=== PATIENT | female | born 1995 | race Caucasian/White ===

== ENCOUNTER 2020-02-01 19:50 | Inpatient (IN) | payer BC ==
[~2020-02-01] VITALS: Ht 175.3 cm; Wt 88.5 kg
[2020-02-01 20:33] LABS: HEMATOCRIT 34.2 % (36.0-48.0); HEMOGLOBIN 11.4 g/dL (12-16); MCH 28.9 pg (26.0-34.0); MCHC 33.3 g/dL (31.0-37.0); MCV 86.6 fL (80.0-100.0); MEAN PLATELET VOLUME 11.6 fL (7.4-10.4); RBC 3.95 10x6/uL (4.00-5.40); RDW 12.8 % (11.5-14.5); WBC 9.8 10x3/uL (4.8-10.8)
[2020-02-01 20:41] LABS: BILIRUBIN NEGATIVE (NEGATIVE); KETONE NEGATIVE (NEGATIVE); NITRITE NEGATIVE (NEGATIVE); UROBILINOGEN NORMAL (NORMAL)
[2020-02-01] MEDS ORDERED: FEXOFENADINE H180 MG PO (20:51)
[2020-02-01] MEDS ORDERED: OMEPRAZOLE40 MG PO (20:51)
[2020-02-01 20:52] VITALS: BP 121/83; Ht 175.3 cm; Wt 88.5 kg
[2020-02-01] MEDS ORDERED: PRENAVITE1 TAB PO (20:52)
[2020-02-01] MEDS ORDERED: SYMBICORT 80-10.2 GM INH (20:52)
[2020-02-02 08:30] LABS: UDS - AMPHET NEGATIVE QUAL (NEGATIVE); UDS - BARB NEGATIVE QUAL (NEGATIVE); UDS - BENZO NEGATIVE QUAL (NEGATIVE); UDS - COCAINE NEGATIVE QUAL (NEGATIVE); UDS - OPIATE NEGATIVE QUAL (NEGATIVE); UDS - PCP NEGATIVE QUAL (NEGATIVE); UDS - THC NEGATIVE QUAL (NEGATIVE)
[2020-02-02 21:40] VITALS: BP 116/60
--- NOTE | 2020-02-02 21:40 | NUR ---
PT REC'D IN BED. DENIES PAIN. SALINE LOCK TO THE RT HAND. FUNDUS FIRM AND MIDLINE WITH SMALL LOCHIA NOTED. NO DISTRESS NOTED. Maris FISH RN
--- NOTE | 2020-02-02 22:00 | NUR ---
REPORT TO Lisa EVANS RN. Maris FISH RN
--- NOTE | 2020-02-02 22:10 | NUR ---
RECEIVED PT FROM L[facility]D POST SARITA, PT TO ROOM 1257, REPORT FROM REBECCA FISH RN, PT ORIENTED TO ROOM, BED IN LOW POSITION, SIDE RAILS X 2, CALL LIGHT IN REACH
--- NOTE | 2020-02-02 22:15 | NUR ---
PT TO ROOM 1257 FOR HOSPITAL STAY. Maris FISH RN
--- NOTE | 2020-02-02 22:35 | NUR ---
PT WATCHING TV, VISITING WITH FOB, PT DENIES NEEDS OR PAIN AT THIS TIME
--- NOTE | 2020-02-02 23:33 | NUR ---
PT DOOR TRIMMER LIGHT, PT UP TO BR WITH ASSISTANCE, GAIT STEADY, ASSISTED PT WITH [place] [employer], PT REPORTS THAT SHE CAN FINISH HERSELF, PT INST TO USE CALL LIGHT FOR ANY ADDITIONAL ASSISTANCE, PT VERBALIZES UNDERSTANDING, DENIES FURTHER NEEDS, FOB HOLDING , REQUESTED AND SERVED COLA
--- NOTE | 2020-02-03 02:17 | NUR ---
PT RESTING WITH EYES CLOSED, RESP QUIET, NO DISTRESS NOTED, LEFT UNDISTURBED AT THIS TIME, IN OPEN CRIB CART AND FOB ASLEEP AT BEDSIDE
--- NOTE | 2020-02-03 04:32 | NUR ---
PT AWAKE, LAB IN ROOM FOR AM BLOOD DRAW, PT DENIES PAIN, REQUESTED AND SERVED FRESH H20, DENIES FURTHER NEEDS, IN OPEN CRIB CART AND FOB ASLEEP AT BEDSIDE
[2020-02-03 04:49] LABS: HEMOGLOBIN 11.2 g/dL (12-16); MCH 28.6 pg (26.0-34.0); MCHC 32.9 g/dL (31.0-37.0); RBC 3.91 10x6/uL (4.00-5.40); RDW 13.1 % (11.5-14.5)
[2020-02-03 04:51] LABS: WBC 17.4 10x3/uL (4.8-10.8)
[2020-02-03 06:11] LABS: RAPID PLASMA REAGIN Non Reactive (Non Reactive)
--- NOTE | 2020-02-03 06:13 | NUR ---
PT RESTING WITH EYES CLOSED, RESP QUIET, NO DISTRESS NOTED, LEFT UNDISTURBED AT THIS TIME, IN OPEN CRIB CART AND FOB ASLEEP AT BEDSIDE
[2020-02-03 08:10] VITALS: BP 105/61
--- NOTE | 2020-02-03 08:10 | NUR ---
RECEIVED PT SITTING UP IN BED. AWAKE. AAAO X 3. VSS. HRRR WITHOUT AUDIBLE MURMUR. BBS CLEAR. BS X 4. PT STATES PASSING GAS. ABDOMEN SOFT/NON-DISTENDED. FUNDUS FIRM AT U/1. RUBRA LOCHIA SMALL AMT. PT DENIES HEAVY BLEEDING OR PASSING CLOTS. PERINEUM WITHOUT EDEMA NOTED. NEG HOMANS' SIGN. PPP. NO EDEMA NOTED TO BLE. PT DENIES PAIN OR NEEDS. SR UPX 2. CALL LIGHT IN REACH.
--- NOTE | 2020-02-03 08:15 | NUR ---
DR VANESSA VISITS WITH PT.
--- NOTE | 2020-02-03 09:02 | NUR ---
PT C/O SOAKING PERIPAD FROM 4440-3760. PERIPAD VIEWED. 3/4 OF PAD WITH SEROSANGUINOUS DRAINAGE NOTED. PT DENIES PASSING CLOTS. STATES HAD JUST BREASTFED PRIOR TO CHANGING PERIPAD. PT INSTRUCTED TO NOTIFY NURSE IF SOAKS PERIPAD IN ONE HOUR AND/OR PASSES CLOT SIZE OF EGG OR BIGGER.
--- NOTE | 2020-02-03 10:30 | NUR ---
PT SITTING UP ON SIDE OF BED. REQUESTS AND RECEIVES ICE WATER.
--- NOTE | 2020-02-03 11:28 | NUR ---
PT SITTING UP IN BED. STATES DESIRE TO DC HOME IF INFANT DC'D HOME THIS EVENING. WILL NOTIFY DR VANESSA.
[2020-02-03 11:41] VITALS: BP 103/57
--- NOTE | 2020-02-03 13:15 | NUR ---
PT IN BATHROOM. MOD AMT OF SEROSANGUINOUS DISCHARGE NOTED ON PERIPAD. NO CLOTS NOTED. PT BACK TO BED. FUNDUS FIRM AT U/1. RUBRA LOCHIA SCANT AMT. NO CLOTS EXPRESSED ON FUNDAL MASSAGE.
--- NOTE | 2020-02-03 14:45 | NUR ---
TDAP 0.5 ML TO RIGHT DELTOID AND RHOGAM FULL DOSE GIVEN IM TO LEFT DELTOID PER [employer] WITH Dwain FAJARDO RN INSTRUCTOR. PT SYLVESTER MENDOZA.
--- NOTE | 2020-02-03 16:00 | NUR ---
PT LYING TO LEFT SIDE. QUESTIONS ANSWERED ABOUT . PT DENIES HEAVY BLEEDING OR PASSING CLOTS. FRESH ICE WATER PROVIDED TO PT.
--- NOTE | 2020-02-03 16:59 | NUR ---
DR VANESSA CALLS. ORDER RECEIVED TO DC HOME IF INFANT DISCHARGED THIS PM. F/U IN 6 WEEKS AT [facility].
--- NOTE | 2020-02-03 20:32 | NUR ---
RN TO PT BEDSIDE, BABY TO REMAIN UNTIL AM FOR KACI ELLISON, PT REQUESTING TO BE ROOMED IN AT THIS TIME. WILL CALL DR. ZAVALA AT THIS TIME TO SEE IF SHE CAN D/C TO ROOM IN.
--- NOTE | 2020-02-03 20:34 | NUR ---
DR. ZAVALA CALLED AND NOTIFIED OF PT'S DESIRES TO ROOM IN. ORDER TO D/C TO ROOM IN NOW.
--- NOTE | 2020-02-03 21:02 | NUR ---
D/C INSTRUCTIONS PROVIDED TO PT, PT VERBALIZES UNDERSTANDING.
== END 2020-02-03 21:02 | disposition home or self-care (01) | DRG 998 ==
LOC: D.LD 19:50
PROVIDERS: ADMIT Obstetrics & Gynecology; ATTEND Obstetrics & Gynecology
PROC: 3E033VJ Introduction of Other Hormone into Peripheral Vein, Percutaneous Approach (ICD-10-PCS; principal; 2020-02-02)
DX: O80 Encounter for full-term uncomplicated delivery (principal); Z3A.40 40 weeks gestation of pregnancy